=== PATIENT | male | born 1975 | race Caucasian/White ===

== ENCOUNTER 2023-02-10 08:04 | Day surgery (SDC) | payer MEDICAID ==
[~2023-02-10] VITALS: Ht 165.1 cm; Wt 82.6 kg
[2023-02-10] MEDS ORDERED: fentaNYL CITRATE/PF 100 MCG/2 ML AMP ONE (08:59)
[2023-02-10] MEDS ORDERED: ONDANSETRON HCL 4 MG/2 ML VIAL ONE (08:59)
[2023-02-10] MEDS ORDERED: MIDAZOLAM HCL 5 MG/5 ML VIAL ONE (09:00)
[2023-02-10] MEDS ORDERED: NORMAL SALINE 10 ML VIAL ONE (10:00)
[2023-02-10] MEDS ORDERED: LIDOCAINE 2%, 20 ML MDV ONE (10:00)
[2023-02-10] MEDS ORDERED: iopamidoL 50 ML VIAL IV ONE (10:00)
[2023-02-10] MEDS ORDERED: methylPREDNISolone ACETATE 40 MG/ML ONE (10:00)
[2023-02-10] MEDS: DIPHENHYDRAMINE INJ 50 MG/ML VIAL ONE ×2 (10:23→10:25)
[2023-02-10 14:09] VITALS: BP_SYST 145; PULSE 51; RESP 18; TEMP 97.8; O2SAT 100
== END 2023-02-10 11:33 | disposition home or self-care (01) ==
LOC: SDS 08:04 → SMU 08:06 → SDS 11:33
PROVIDERS: ATTEND Internal Medicine
DX: M51.16 Intervertebral disc disorders with radiculopathy, lumbar region (principal); M51.9 Unspecified thoracic, thoracolumbar and lumbosacral intervertebral disc disorder; M50.90 Cervical disc disorder, unspecified, unspecified cervical region; M79.10 Myalgia, unspecified site; I10 Essential (primary) hypertension; E78.5 Hyperlipidemia, unspecified; E03.9 Hypothyroidism, unspecified; Z79.899 Other long term (current) drug therapy
CPT/HCPCS: 62323; J1200; J2001; J1030; J2250; J3010; Q9967; 76000; J2405

== ENCOUNTER 2023-04-07 09:28 | Day surgery (SDC) | payer BC ==
[~2023-04-07] VITALS: Ht 162.6 cm; Wt 82.6 kg
[~2023-04-07 09:28] MED LIST: DEXAMETHASONE SOD PHOSPHATE 4 MG/ML VIAL ONE; ISOVUE-300 (IOPAMIDOL) 100 ML INFUS..BTL IV ONE; LIDOCAINE 2%, 20 ML MDV ONE; NORMAL SALINE 10 ML VIAL ONE
[2023-04-07] MEDS ORDERED: DIPHENHYDRAMINE INJ 50 MG/ML VIAL ONE (12:04)
[2023-04-07] MEDS ORDERED: ONDANSETRON HCL 4 MG/2 ML VIAL ONE (12:05)
[2023-04-07] MEDS ORDERED: DIPHENHYDRAMINE INJ 50 MG/ML VIAL IVP ONE (12:05)
[2023-04-07] MEDS ORDERED: fentaNYL CITRATE/PF 100 MCG/2 ML AMP ONE (12:05)
[2023-04-07] MEDS: MIDAZOLAM HCL 5 MG/5 ML VIAL ONE ×2 (12:43→12:46)
[2023-04-07 13:00] VITALS: O2SAT 97
[2023-04-07 14:58] VITALS: BP_SYST 116; PULSE 60; RESP 16
== END 2023-04-07 13:45 | disposition home or self-care (01) ==
LOC: SDS 09:28 → SMU 09:42 → SDS 13:45
PROVIDERS: ATTEND Internal Medicine
DX: M50.13 Cervical disc disorder with radiculopathy, cervicothoracic region (principal); M51.9 Unspecified thoracic, thoracolumbar and lumbosacral intervertebral disc disorder; M51.16 Intervertebral disc disorders with radiculopathy, lumbar region; M79.10 Myalgia, unspecified site; I10 Essential (primary) hypertension; E78.5 Hyperlipidemia, unspecified; E03.9 Hypothyroidism, unspecified; Z79.899 Other long term (current) drug therapy
CPT/HCPCS: 62321; J1100; J1200; J2001; J2250; J3010; Q9967; 76000; J2405